=== PATIENT | male | born 1985 | race Caucasian/White ===

== ENCOUNTER → 2017-09-12 | Outpatient (CLI) | payer BC ==
[2017-09-12 14:24] LABS: Calcium 10.2 mg/dL (8.4-10.2)
== END | disposition home or self-care (01) ==
LOC: LABWHC1 13:19
DX: R94.4 Abnormal results of kidney function studies (principal)
CPT/HCPCS: 36415; 80048

== ENCOUNTER → 2018-06-12 | Outpatient (CLI) | payer BC ==
[2018-06-12 12:44] LABS: Basophils % (A) 1 %; Eosinophils # (A) 0.1 k/uL (0-0.7); Eosinophils % (A) 2 %; HCT 45.5 % (39.0-53.0); HGB 14.6 gm/dL (13.0-17.5); Lymphocytes # (A) 1.6 k/uL (1.0-4.8); Lymphocytes % (A) 39 %; MCV 93.7 fL (80.0-100.0); Mean Platelet Volume 5.7; Monocytes # (A) 0.2 k/uL (0-1.0); Monocytes % (A) 5 %; Neutrophils # (A) 2.1 k/uL (1.3-7.7); Neutrophils % (A) 52 %; Platelet Count 311 k/uL (150-450); RBC 4.86 m/uL (4.30-5.90); RDW 13.1 % (11.5-15.5)
[2018-06-12 20:58] LABS: Albumin 4.4 g/dL (3.80-4.90); Albumin/Globulin Ratio 2.1 (1.60-3.17); Anion Gap 11.1 mmol/L (4.00-12.00); Calcium 9.6 mg/dL (8.7-10.3); Carbon Dioxide 23.9 mmol/L (21.6-31.8); Globulin 2.1 g/dL (1.6-3.3); LDL Cholesterol,Calculated 99.8 mg/dL (0.0-131.0); Potassium 4.8 mmol/L (3.5-5.5); Total Bilirubin 0.5 mg/dL (0.3-1.2); Total Protein 6.5 g/dL (6.2-8.2); VLDL Calculation 28.2 mg/dL (5.00-40.00)
== END | disposition home or self-care (01) ==
LOC: LABWHC1 11:26
PROVIDERS: ATTEND Family Medicine
DX: Z00.00 Encounter for general adult medical examination without abnormal findings (principal)
CPT/HCPCS: 36415; 80053; 80061; 84403; 85025

== ENCOUNTER 2020-08-14 09:39 | Emergency (ER) | payer BC ==
[2020-08-14] MEDS ORDERED: IBUPROFEN 600 MG TAB PO STA (11:35)
[2020-08-14] MEDS ORDERED: ACETAMINOPHEN TAB 500 MG TAB PO STA (11:35)
--- NOTE | 2020-08-14 11:35 | XR ---
EXAMINATION TYPE: XR chest 1V portable DATE OF EXAM: 08/14/2020 COMPARISON: None INDICATION: Cough fever TECHNIQUE: Single frontal view of the chest is obtained. FINDINGS: The heart size is normal. The pulmonary vasculature is normal. The lungs are clear. Moderate size hiatal hernia with an air-fluid level is present. IMPRESSION: 1. No acute pulmonary process. 2. Large size hiatal hernia
[2020-08-14] MEDS ORDERED: ALBUTEROL NEBULIZED 2.5 MG/3 ML INHALATION STA (11:42)
--- NOTE | 2020-08-14 11:43 | ED ---
General Adult HPI - General Chief complaint: Shortness of Breath Stated complaint: Covid+, fever, cough, SOB Time Seen by Provider: 08/14/20 11:01 Source: patient Mode of arrival: ambulatory Limitations: no limitations - History of Present Illness Initial comments: 35-year-old male presents to the emergency room for a chief complaint of shortness of breath. States this mainly happens when he gets into coughing fits. Patient reports that he developed symptoms of Coronavirus 8 days ago and then tested positive on . patient did bring positive test result. Patient states that he has done a steroid as well as a Z-Srinivasan and it has not resolved. He states he has used an inhaler which has helped at times. he also heard he could maybe get an antibody infusion and is wondering about this. Patient inquiring about if there is anything else he can do for this.Patient has no other complaints at this time including chest pain, abdominal pain, nausea or vomiting, headache, or visual changes. - Related Data Previous Rx's Medication Instructions Recorded Benzonatate [Tessalon Perles] 200 mg PO Q8H PRN #20 capsule 08/14/20 guaiFENesin [Mucinex] 600 mg PO Q12HR PRN #20 tablet.er 08/14/20 Allergies Allergy/AdvReac Type Severity Reaction Status Date / Time No Known Allergies Allergy Verified 08/14/20 10:06 Review of Systems ROS Statement: Those systems with pertinent positive or pertinent negative responses have been documented in the HPI. ROS Other: All systems not noted in ROS Statement are negative. Past Medical History Past Medical History: No Reported History History of Any Multi-Drug Resistant Organisms: None Reported Additional Past Surgical History / Comment(s): femur Past Psychological History: No Psychological Hx Reported Smoking Status: Never smoker Past Alcohol Use History: Occasional Past Drug Use History: None Reported General Exam Limitations: no limitations General appearance: alert, in no apparent distress (In no distress, no respiratory distress) Head exam: Present: atraumatic, normocephalic, normal inspection Eye exam: Present: normal appearance, PERRL, EOMI. Absent: scleral icterus, conjunctival injection, periorbital swelling ENT exam: Present: normal exam, mucous membranes moist Neck exam: Present: normal inspection, full ROM. Absent: tenderness, meningismus, lymphadenopathy Respiratory exam: Present: normal lung sounds bilaterally. Absent: respiratory distress, wheezes, rales, rhonchi, stridor Cardiovascular Exam: Present: regular rate, normal rhythm, normal heart sounds. Absent: systolic murmur, diastolic murmur, rubs, gallop, clicks GI/Abdominal exam: Present: soft, normal bowel sounds. Absent: distended, tenderness, guarding, rebound, rigid Neurological exam: Present: alert Course Vital Signs 08/14/20 10:01 Temperature 100.2 F H Pulse Rate 108 H Respiratory 20 Rate Blood Pressure 140/90 O2 Sat by Pulse 97 Oximetry Medical Decision Making - Medical Decision Making Vitals are stable. Fever 100.2 likely causing reflexive tachycardia. Patient is 97% on room air. Chest x-ray revealed no acute pulmonary process. He does have a hiatal hernia. At this time we will treat patient with supportive treatment including Mucinex, Tessalon Perles. He has already had albuterol inhaler, Z-Srinivasan, and steroids. Patient also qualifies for antibody infusion. I did discuss the risks and side effects and patient is okay with this. Discussed following up with primary care and returning for any worsening symptoms. Disposition Clinical Impression: COVID-19, Hiatal hernia Disposition: HOME SELF-CARE Condition: Good Instructions (If sedation given, give patient instructions): Coronavirus Disease 2019 (COVID-19) Additional Instructions: Please take medications as directed. Follow-up with your doctor to discuss hiatal hernia as well as coronavirus symptoms. Return to the emergency room for any worsening symptoms. Prescriptions: guaiFENesin [Mucinex] 600 mg PO Q12HR PRN #20 tablet.er PRN Reason: Congestion Benzonatate [Tessalon Perles] 200 mg PO Q8H PRN #20 capsule PRN Reason: Cough Is patient prescribed a controlled substance at d/c from ED?: No Referrals: Maikel Larsen MD [Primary Care Provider] - 1-2 days Time of Disposition: 11:40
[2020-08-14] MEDS ORDERED: ALBUTEROL HFA INHALER INHALATION STA (12:44)
[2020-08-14] MEDS ORDERED: BAMLANIVIMAB (EUA) 700 MG, ETESEVIMAB (EUA) 1,400 MG in SODIUM CHLORIDE 0.9% 50 ML IVPB ONE (13:00)
[2020-08-14 15:12] VITALS: BP 137/89; PULSE 87; RESP 18; TEMP 98.6
== END 2020-08-14 15:11 | disposition home or self-care (01) ==
LOC: EC 09:39
DX: U07.1 COVID-19 (principal); K44.9 Diaphragmatic hernia without obstruction or gangrene
CPT/HCPCS: 94640; 87635; 71045; 99285; 96365; Q0245

== ENCOUNTER 2022-11-13 05:57 | Day surgery (SDC) | payer BC ==
[2022-11-12 09:09] VITALS: BMI 32.5
[2022-11-13] MEDS ORDERED: LIDOCAINE 1% (10MG/ML) FOR IV START INTRADERMA PRN (06:07)
[2022-11-13] MEDS: LACTATED RINGERS 1,000 ML IV SCH ×2 (06:10→07:04)
[2022-11-13 06:24] VITALS: TEMP 97.5
[2022-11-13] MEDS ORDERED: PROPOFOL 10 MG/ML 20 ML VIAL IV ONE (07:04)
[2022-11-13] MEDS ORDERED: LIDOCAINE 2% INJ 20 MG/ML (2 ML VIAL) ONE (07:04)
--- NOTE | 2022-11-13 07:26 | P.PCN ---
Date of Procedure: 11/13/22 Procedure(s) Performed: Brief history: Patient is a pleasant 37-year-old white male scheduled for an elective upper endoscopy as well as colonoscopy as a part of evaluation of epigastric pain, heartburn and chronic diarrhea of several years duration Procedure performed: Esophagogastroduodenoscopy with biopsy Colonoscopy with biopsy Preoperative diagnosis: Epigastric pain/heartburn Chronic diarrhea Anesthesia: MAC Procedure: After informed consent was obtained from the patient was brought into the e ndoscopy unit and IV sedation was administered by anesthesia under continuous monitoring. Initially upper endoscopy was done. The Olympus GF 160 video endoscope was inserted inserted into the mouth and esophagus intubated without any difficulty and was gradually advanced into the stomach and duodenum and carefully examined. The bulb and second part of the duodenum appeared normal. Abscesses were done from the duodenum to rule out celiac disease. The scope was then withdrawn into the stomach adequately insufflated with air and upon careful examination the antrum had mild gastritis and biopsies were done from this area. Mucosa of the body, cardia and fundus appeared normal. As a moderate to large size hiatal hernia noted. The scope was then withdrawn into the esophagus. The GE junction was located at 34 cm to the incisors. there was a tight distal esophagus which are identified and this was dilated passage of scope. Circumferential erythema the GE junction consistent with LA grade a reflux esophagitis. Rest of the esophagus appeared normal. Patient tolerated the procedure well. At this time the patient continued to remain sedation. Initial digital rectal examination was normal. Olympus CF 160 video colonoscope was then inserted into the rectum and gradually advanced to the cecum without any difficulty. Careful examination was performed as the scope was gradually being withdrawn. The prep was excellent. The cecum, ascending colon, transverse colon, descending colon, sigmoid colon and rectum appeared normal. Random biopsies were done from ascending and descending colon to rule out metastatic/collagenous colitis. Retroflexion was performed in the rectum and no lesions were noted. Patient tolerated the procedure well. Impression: 1. Upper endoscopy revealed distal esophageal stricture status post dilation with the passage of the scope and moderate to large size hiatal hernia 2. Colonoscopy was within normal limits with no evidence of colorectal neoplasia Recommendations: Findings of this examination were discussed with the patient as well as his family. He was advised to follow with the biopsy results. he was advised to follow with the biopsy results. Start him on Prilosec 20 mg daily and follow antireflux measures. Continue Bentyl and he'll be seen in office in 2 weeks.
[2022-11-13 07:34] VITALS: RESP 16
[2022-11-13 07:54] VITALS: BP 119/80; PULSE 85
== END 2022-11-13 08:35 | disposition home or self-care (01) ==
LOC: ORWHC2ENDO 05:57
PROVIDERS: ATTEND Internal Medicine Gastroenterology
DX: K29.50 Unspecified chronic gastritis without bleeding (principal); K21.00 Gastro-esophageal reflux disease with esophagitis, without bleeding; K52.9 Noninfective gastroenteritis and colitis, unspecified; K44.9 Diaphragmatic hernia without obstruction or gangrene; K22.2 Esophageal obstruction; Z79.899 Other long term (current) drug therapy; J45.909 Unspecified asthma, uncomplicated; F17.200 Nicotine dependence, unspecified, uncomplicated; Z98.890 Other specified postprocedural states
CPT/HCPCS: 88305; 45380; 43239; J2704; J2001